=== PATIENT | female | born 2000 | race Caucasian/White ===

== ENCOUNTER 2023-08-31 10:32 | Day surgery (SDC) | payer BC ==
[~2023-08-31] VITALS: Ht 162.6 cm; Wt 93.2 kg
[2023-08-31] MEDS ORDERED: MORPHINE 4 MG/ML 1ML VIAL As Ordered ONE (10:55)
[2023-08-31] MEDS ORDERED: PROPOFOL 1,000 MG/100 ML VIAL As Ordered ONE (10:55)
[2023-08-31] MEDS ORDERED: propofoL 200 MG/20 ML VIAL As Ordered ONE (10:55)
[2023-08-31] MEDS ORDERED: ONDANSETRON 4MG 2ML VIAL As Ordered ONE (10:55)
[2023-08-31] MEDS: NS 1,000 ML IV ONE (10:55)
[2023-08-31] MEDS: ONDANSETRON 4MG 2ML VIAL IV ONE (11:00)
[2023-08-31] MEDS: MORPHINE 4 MG/ML 1ML VIAL IV ONE (11:13)
[2023-08-31] MEDS: propofoL 200 MG/20 ML VIAL IV.PROC PRN (11:16)
[2023-08-31 12:45] LABS: BASO % 0.2 % (0.0-1.0); HEMATOCRIT 42.1 % (36.0-47.0); HEMOGLOBIN 14.2 g/dl (12.0-15.5); LYMPH # 1.7 10^3/uL (1.5-5.0); LYMPH % 10.9 % (24.0-44.0); MEAN CORPUSCULAR HEMOGLOBIN 30.3 pg (27.0-33.0); MEAN CORPUSCULAR HGB CONC 33.7 g/dl (32.0-36.5); MONO # 0.6 10^3/uL (0.0-0.8); MONO % 3.8 % (2.0-8.0); NEUTROPHILS # 12.9 10^3/uL (1.5-8.5); NEUTROPHILS % 84.7 % (36.0-66.0); PLATELET COUNT, AUTOMATED 276 10^3/uL (150-450); RED BLOOD COUNT 4.68 10^6/uL (4.00-5.40); WHITE BLOOD COUNT 15.2 10^3/uL (4.0-10.0)
[2023-08-31] MEDS ORDERED: SCOPOLAMINE 1MG TRANSDERMAL PATCH As Ordered ONE (13:01)
[2023-08-31 13:07] LABS: BLOOD UREA NITROGEN 10 MG/DL (9-23); CALCIUM LEVEL 9.1 MG/DL (8.5-10.1); CARBON DIOXIDE LEVEL 22 MMOL/L (20-31); CHLORIDE LEVEL 111 MMOL/L (98-107); GLOMERULAR FILTRATION RATE > 60.0 (>60); GLUCOSE, FASTING 95 MG/DL (60-100); POTASSIUM SERUM 3.9 MMOL/L (3.5-5.1); SODIUM LEVEL 141 MMOL/L (136-145)
[2023-08-31] MEDS ORDERED: LR 1,000 ML IV SCH ×2 (13:10→15:05)
[2023-08-31] MEDS ORDERED: fentaNYL 100 MCG/2 ML INJECTION As Ordered ONE (13:16)
[2023-08-31] MEDS ORDERED: ACETAMINOPHEN 1000MG 100ML IV BAG As Ordered ONE (13:16)
[2023-08-31] MEDS ORDERED: LIDOCAINE 2% 100MG/5ML SDV (FOR ANES.) As Ordered ONE (13:16)
[2023-08-31] MEDS ORDERED: MIDAZOLAM INJ 2MG/2ML VIAL As Ordered ONE (13:16)
[2023-08-31] MEDS: ceFAZolin 2 GM/D5W 50 ML IV BAG As Ordered ONE (14:00)
[2023-08-31] MEDS ORDERED: KETOROLAC 60MG 2ML VIAL As Ordered ONE (14:02)
[2023-08-31] MEDS ORDERED: HYDROmorphone HCL 2MG/ML 1ML VIAL As Ordered ONE (14:27)
[2023-08-31] MEDS ORDERED: HYDROMORPHONE HCL 0.5 MG/ 0.5 ML SYRINGE IV PRN (15:05)
[2023-08-31] MEDS ORDERED: ONDANSETRON 4MG 2ML VIAL IV PRN (15:05)
[2023-08-31] MEDS ORDERED: oxyCODONE 5MG TAB PO PRN (15:05)
[2023-08-31] MEDS ORDERED: fentaNYL 100 MCG/2 ML INJECTION IV PRN (15:05)
[2023-08-31] MEDS ORDERED: ECOT81TA5 PO (15:14)
[2023-08-31] MEDS ORDERED: OXYC1TAB23 PO (15:14)
[2023-08-31 16:18] VITALS: BP 132/78; TEMP 97.2; O2SAT 100
== END 2023-08-31 17:18 | disposition home or self-care (01) ==
LOC: M ED 10:32 → M SDC 10:33
PROVIDERS: ATTEND Orthopaedic Surgery
DX: S82.852A Displaced trimalleolar fracture of left lower leg, initial encounter for closed fracture (principal); S93.432A Sprain of tibiofibular ligament of left ankle, initial encounter; W19.XXXA Unspecified fall, initial encounter; X50.1XXA Overexertion from prolonged static or awkward postures, initial encounter; Y93.01 Activity, walking, marching and hiking; Y92.89 Other specified places as the place of occurrence of the external cause
CPT/HCPCS: 27822; 27829; 73590; 73600; 73610; 73620; 76000; 80048; 85025; 93041; 94760; 99285; C1713; J0131; J0690; J1100; J1170; J1885; J2250; J2405; J3010

== ENCOUNTER 2023-09-10 16:29 | Emergency (ER) | payer BC ==
[~2023-09-10] VITALS: Ht 162.6 cm; Wt 93.2 kg
[~2023-09-10 16:29] MED LIST: ECOT81TA5 PO; OXYC1TAB23 PO
[2023-09-10 17:39] LABS: BASO % 0.3 % (0.0-1.0); EOS % 0.4 % (0.0-3.0); HEMATOCRIT 40.5 % (36.0-47.0); HEMOGLOBIN 13.5 g/dl (12.0-15.5); LYMPH # 2.4 10^3/uL (1.5-5.0); LYMPH % 23.9 % (24.0-44.0); MEAN CORPUSCULAR HEMOGLOBIN 30.5 pg (27.0-33.0); MEAN CORPUSCULAR HGB CONC 33.3 g/dl (32.0-36.5); MEAN CORPUSCULAR VOLUME 91.6 fl (80.0-96.0); MONO # 0.7 10^3/uL (0.0-0.8); MONO % 6.8 % (2.0-8.0); NEUTROPHILS % 68.3 % (36.0-66.0); PLATELET COUNT, AUTOMATED 304 10^3/uL (150-450); RED BLOOD COUNT 4.42 10^6/uL (4.00-5.40); WHITE BLOOD COUNT 10.2 10^3/uL (4.0-10.0)
[2023-09-10 18:06] LABS: HCG, SERUM QUALITATIVE NEGATIVE (NEGATIVE)
[2023-09-10 18:30] LABS: ERYTHROCYTE SEDIMENTATION RATE 30 mm/hr (0-20)
[2023-09-10] MEDS: PERCOCET 5MG/325MG TAB PO ONE (18:30)
[2023-09-10] MEDS: GABAPENTIN 100 MG CAP PO ONE (18:31)
[2023-09-10] MEDS ORDERED: GABA-1171 PO (20:12)
[2023-09-10 20:30] VITALS: BP 126/84; TEMP 98.1; O2SAT 98
== END 2023-09-10 20:42 | disposition home or self-care (01) ==
LOC: M ED 16:29
DX: R20.2 Paresthesia of skin (principal); Z91.09 Other allergy status, other than to drugs and biological substances; Z79.1 Long term (current) use of non-steroidal anti-inflammatories (NSAID); Z79.899 Other long term (current) drug therapy

== ENCOUNTER → 2023-09-14 | Outpatient (CLI) | payer BC ==
[~2023-09-14] MED LIST changes: +GABA-1171 PO
== END ==
LOC: M PLAIMG 14:28
PROVIDERS: ATTEND Orthopaedic Surgery
DX: S82.852A Displaced trimalleolar fracture of left lower leg, initial encounter for closed fracture (principal); W18.30XA Fall on same level, unspecified, initial encounter; Y92.009 Unspecified place in unspecified non-institutional (private) residence as the place of occurrence of the external cause

== ENCOUNTER → 2023-10-11 | Outpatient (CLI) | payer BC | LOC: M SOG 07:54 | PROVIDERS: ATTEND Orthopaedic Surgery | DX: S82.852A Displaced trimalleolar fracture of left lower leg, initial encounter for closed fracture (principal); X58.XXXA Exposure to other specified factors, initial encounter; Y92.9 Unspecified place or not applicable; Y93.9 Activity, unspecified; Y99.9 Unspecified external cause status ==